=== PATIENT | female | born 1930 | race Caucasian/White ===

== ENCOUNTER 2016-04-24 08:18 | Observation (INO) | payer OTHER ==
[~2016-04-24] VITALS: Ht 152.4 cm; Wt 61.2 kg
[~2016-04-24 08:18] MED LIST: ACIDOPHILUS LA1 EACH PO; AMLODIPINE BESY10 MG PO; AMLODIPINE BESYL5 MG PO; ANTIVERT25 MG PO; APRESOLINE25 MG PO; APRESOLINE50 MG PO; ASPIR 8181 M1 PO; ASPIRIN325 MG PO; Advair HFA 115/21 IH; Apresoline PO; B-121000 MC2 PO; BUMEX1 MG PO; Bumex PO; CALCIUM 600 +1 EAC3 PO; CEFTIN500 MG PO; COLACE100 MG PO; COLON HERBA1 CAPSULE PO; Calcium Carbonate,Ca PO; Colace PO; DOCUSATE SODIU100 MG PO; DuoNeb IH; ENDOCET 5-3251 EACH PO; ERYTHROCIN STE250 MG PO; Ecotrin PO; FENOFIBRATE160 M1 PO; FENOFIBRATE54 M1 PO; FERROUS SULFAT325 MG PO; FIBER TABS625 MG PO; FIBERCON625 MG PO; FOSAMAX70 MG PO; GAVISCON LIQUI355 ML PO; HYDRALAZINE HCL50 MG PO; IMDUR120 MG PO; IMDUR60 MG PO; IMODIUM A-D2 MG PO; ISOSORBIDE MON120 M1 PO; Imdur PO; K-DUR20 MEQ PO; K-Dur PO; KLOR-CON 1010 ME1 PO; LASIX40 MG PO; LOFIBRA,TRIGLI160 MG PO; LOW DOSE ASPIRI81 M1 PO; LOW DOSE ASPIRI81 M2 PO; Lasix PO; MAALOX, MYLANTA30 ML PO; MAGNESIUM250 M1 PO; MAGNESIUM250 MG PO; METOPROLOL SUCC25 MG PO; MIRALAX17 GM PO; MIRALAX255 GM PO; Magnesium PO; NIACIN500 M1 PO; NITROSTAT0.4 MG SL; NORVASC10 MG PO; Niacin PO; Norvasc PO; OMEGA 3 1,0001 EACH PO; OMEGA 3-6-91200 MG PO; PERCOCET 5/31 TABLET PO; PLAVIX75 MG PO; PRALUENT S75 MG/1 ML SC; PRESERVISION S1 EACH PO; PROAIR HFA8.5 GM IH; PROCTOCORT28.35 GM PR; PROMETHAZINE HC25 M1 PO; PROTONIX20 MG PO; PROTONIX40 MG PO; Plavix PO; Protonix PO; RANEXA500 MG PO; Robitussin AC,Tussi- PO; SYSTANE 0.3-0.1 EACH BOTH EYES; SYSTANE BALANCE10 ML BOTH EYES; TOPROL XL100 MG PO; TYLENOL REGULA325 MG PO; Tessalon Perle PO; Toprol XL PO; VITAMIN B12 100MCG PO; VITAMIN B122500 MCG PO; Zithromax PO; [UNRECOGNIZED DRUG - OTHER]; predniSONE PO
[2016-04-24 09:07] LABS: EOSINOPHIL (%) 0.9 % (0-5); EOSINOPHIL COUNT 0.1 K/uL (0-0.3); HEMATOCRIT 39.4 % (36.0-46.0); IMMATURE GRANULOCYTE (%) 0.2 % (0.0-0.7); IMMATURE GRANULOCYTE COUNT 0.1 K/uL; LYMPHOCYTE COUNT 1.3 K/uL (1.0-2.8); MCH 29.4 PG (29.0-34.0); MCHC 33.2 G/DL (30.0-36.0); MCV 88.3 FL (83-99); MEAN PLAT.VOLUME 8.9 uM^3 (9.5-12.4); MONOCYTE (%) 9.6 % (3-12); MONOCYTE COUNT 0.5 K/uL (0-0.8); NEUTROPHIL (%) 66.4 % (45-76); NEUTROPHIL COUNT 3.7 K/uL (1.8-6.4); PLATELET COUNT 267 K/uL (156-360); RBC DIS.WIDTH-CV 14.7 % (11.8-14.6); RBC DIS.WIDTH-SD 46.5 % (39-53); RED BLOOD COUNT 4.46 M/uL (3.80-5.20); WHITE BLOOD COUNT 5.6 K/uL (4.1-10.2)
[2016-04-24 09:19] LABS: CHLORIDE 107 mEq/L (99-109); INTER. NORMALIZED RATIO 1.1; POTASSIUM 3.9 mEq/L (3.7-5.4); PROTHROMBIN TIME 11.3 (9.2-11.2); PTT 29.2 (25-32); SODIUM 142 mEq/L (136-147)
[2016-04-24 09:20] LABS: GLUCOSE 92 mg/dL (70-99)
[2016-04-24 09:22] LABS: ANION GAP 8 MEQ/L (2-14)
[2016-04-24 09:24] LABS: GFR ESTIMATE (CALCULATED) > 59 mL/min/
[2016-04-24 09:25] LABS: UREA NITROGEN (BUN) 20 mg/dL (9-23)
[2016-04-24 09:27] LABS: TROP-I INTERPRETATION NEGATIVE; TROPONIN-I < 0.01 ng/mL (0.0-0.30)
[2016-04-24 12:24] VITALS: BP 168/78
[2016-04-24 18:26] LABS: TROP-I INTERPRETATION NEGATIVE; TROPONIN-I < 0.01 ng/mL (0.0-0.30)
[2016-04-24] MEDS ORDERED: IMDUR120 MG PO (18:49)
[2016-04-24] MEDS ORDERED: VITAMIN D-32000 UNI2 PO (18:50)
[2016-04-24] MEDS ORDERED: OMEGA-31000 M1 PO (18:50)
[2016-04-24] MEDS ORDERED: FML BOTH EYES (18:51)
[2016-04-24] MEDS ORDERED: RESTASIS 01 DROP/0.4 BOTH EYES (18:52)
[2016-04-24 20:00] VITALS: BP 130/62
[2016-04-25 00:50] LABS: TROP-I INTERPRETATION NEGATIVE; TROPONIN-I < 0.01 ng/mL (0.0-0.30)
[2016-04-25 03:55] VITALS: BP 103/56
[2016-04-25 07:02] LABS: HDL CHOLESTEROL 42 MG/DL (Desirable>=50); LDL CHOLESTEROL 91 mg/dL (Desirable<100); NON-HDL CHOLESTEROL 123 mg/dL (Desirable<160); TOTAL CHOLESTEROL 165 mg/dL (Desirable<200); TRIGLYCERIDES 160 MG/DL (Normal: <150)
[2016-04-25 07:24] VITALS: BP 135/63
[2016-04-25 11:36] VITALS: BP 171/74
== END 2016-04-25 12:35 | disposition home or self-care (01) ==
LOC: EME 08:18 → EDOF 10:49 → 5WEST 10:49
PROVIDERS: Emergency Medicine; Hospitalist
DX: R07.89 Other chest pain (principal); R00.2 Palpitations; I25.10 Atherosclerotic heart disease of native coronary artery without angina pectoris; Z95.1 Presence of aortocoronary bypass graft; I49.5 Sick sinus syndrome; Z95.0 Presence of cardiac pacemaker; I10 Essential (primary) hypertension; E78.5 Hyperlipidemia, unspecified; I48.0 Paroxysmal atrial fibrillation; Z87.891 Personal history of nicotine dependence; Z88.8 Allergy status to other drugs, medicaments and biological substances
CPT/HCPCS: 71010; 80048; 80061; 84484; 85025; 85610; 85730; 93005; 99281; 99285; G0378; J1650; S0028